=== PATIENT | male | born 1965 | race Caucasian/White ===

== ENCOUNTER 2022-08-11 06:39 | Emergency (ER) | payer BC ==
[~2022-08-11] VITALS: Ht 170.2 cm; Wt 99.8 kg
[~2022-08-11 06:39] MED LIST: ALBU90OI INH; CITA20 PO; CLON1 PO; DOXY100 PO; HYDACE5325 PO; LORA.5 PO; OXYACE5T PO; VENL75 PO
[2022-08-11] MEDS ORDERED: MELO7.5 PO (08:33)
== END 2022-08-11 08:56 | disposition home or self-care (01) ==
LOC: ER 06:39
DX: F13.239 Sedative, hypnotic or anxiolytic dependence with withdrawal, unspecified (principal); G47.00 Insomnia, unspecified; I10 Essential (primary) hypertension; Z88.0 Allergy status to penicillin; Z79.899 Other long term (current) drug therapy
CPT/HCPCS: 36415; J1170; J1885; J2060